=== PATIENT | female | born 1985 | race Caucasian/White ===

== ENCOUNTER 2023-09-29 11:56 | Outpatient (CLI) | payer OTHER, SELFPAY | END 2023-09-29 11:57 | disposition home or self-care (01) | PROVIDERS: PCP Family Medicine; Visit Provider Family Medicine | DX: R17 Unspecified jaundice (principal); I10 Essential (primary) hypertension; R10.9 Unspecified abdominal pain | CPT/HCPCS: 80053; 80074; 84443; 84702 ==

== ENCOUNTER 2024-06-06 13:30 | Outpatient (CLI) | payer MEDICAID, SELFPAY | END 2024-06-06 13:31 | disposition home or self-care (01) | PROVIDERS: PCP Family Medicine; Visit Provider Family Medicine | DX: I10 Essential (primary) hypertension (principal); K74.60 Unspecified cirrhosis of liver; D64.9 Anemia, unspecified; R56.9 Unspecified convulsions; F41.8 Other specified anxiety disorders; I42.9 Cardiomyopathy, unspecified | CPT/HCPCS: 80048; 80061; 80076 ==

== ENCOUNTER 2025-04-24 16:04 | Outpatient (CLI) | payer MEDICAID, SELFPAY | END 2025-04-24 16:05 | disposition home or self-care (01) | LOC: LKVREF 16:06 | PROVIDERS: PCP Family Medicine; Visit Provider Family Medicine | DX: D64.9 Anemia, unspecified (principal); I10 Essential (primary) hypertension; I42.9 Cardiomyopathy, unspecified; K74.60 Unspecified cirrhosis of liver | CPT/HCPCS: 80053 ==

== ENCOUNTER 2025-06-13 13:33 | Outpatient (CLI) | payer MEDICAID, SELFPAY | END 2025-06-13 13:34 | disposition home or self-care (01) | PROVIDERS: PCP Family Medicine; Visit Provider Family Medicine | DX: I85.00 Esophageal varices without bleeding (principal); K74.60 Unspecified cirrhosis of liver; R56.9 Unspecified convulsions; F10.10 Alcohol abuse, uncomplicated | CPT/HCPCS: 80076; 80177; 82977 ==